=== PATIENT | female | born 1960 | race Two or more races ===

== ENCOUNTER 2017-03-26 14:20 | Emergency (ER) | payer MEDICAID ==
[~2017-03-26] VITALS: Ht 152.4 cm; Wt 53.5 kg
[2017-03-26] MEDS ORDERED: LEVOTHYROXINE50 MCG ORAL (14:50)
[2017-03-26] MEDS ORDERED: ASPIRIN EC81 MG ORAL (14:50)
[2017-03-26] MEDS ORDERED: PRAVACHOL40 MG ORAL (14:50)
[2017-03-26 15:49] LABS: APPEARANCE,URINE CLEAR; BILIRUBIN, URINE NEGATIVE (NEGATIVE); COLOR,URINE PALE YELLOW; GLUCOSE, URINE (UA) NEGATIVE (NEGATIVE); KETONES,URINE NEGATIVE (NEGATIVE); LEUKOCYTE ESTERASE ,URINE 3+ (NEGATIVE); NITRITE,URINE NEGATIVE (NEGATIVE); PH,URINE 6.5 (4.5-8.0); PROTEIN,URINE 1+ (NEGATIVE); UROBILINOGEN,URINE NORMAL MG/DL (0.0-1.0)
[2017-03-26 16:20] VITALS: BP 116/76
[2017-03-26] MEDS ORDERED: NITROFURANTOIN100 M2 ORAL (16:26)
--- NOTE | 2017-03-26 22:40 | Emergency Room Report ---
History of Present Illness General Chief Complaint: Female Urogenital Problems Source: Patient Present Illness HPI The patient is a 57-year-old female presenting for 2 days of pain with urination described as a 5/10 burning sensation. She also admits to increased urinary frequency. She denies other symptoms including abdominal pain, nausea, vomiting, fever, back pain, vaginal discharge, hematuria Allergies: Coded Allergies: ATORVASTATIN (Verified Allergy, Unknown, 03/26/17) Patient History Past Medical History: see triage record Pertinent Family History: none Last Menstrual Period: Post1991. Now: No Reviewed Nursing Documentation: PMH: Agreed, PSxH: Agreed Review of Systems All Other Systems: negative except mentioned in HPI Physical Exam Vital Signs Date Time Temp Pulse Resp B/P (MAP) Pulse Ox O2 Delivery O2 Flow Rate FiO2 03/26/17 14:41 98.2 104 17 119/71 97 Room Air Sp02 EP Interpretation: reviewed, normal General Appearance: no apparent distress, alert, GCS 15, non-toxic Head: normocephalic, atraumatic Eyes: bilateral eye normal inspection, bilateral eye PERRL ENT: hearing grossly normal, normal pharynx, no angioedema, normal voice Respiratory: chest non-tender, lungs clear, normal breath sounds, speaking full sentences Gastrointestinal: normal inspection, no mass, non-distended, tenderness - suprapubic Genitourinary: normal inspection, no CVA tenderness Musculoskeletal: back normal, gait/station normal, normal range of motion, non- tender Neurologic: alert, oriented x3, responsive, motor strength/tone normal, sensory intact, speech normal Medical Decision Making PA Attestation Dr. Mancilla is my supervising physician. Patient management was discussed with my supervising physician Diagnostic Impression: Primary Impression: Urinary tract infection Qualified Codes: N30.01 - Acute cystitis with hematuria ER Course The patient is a 57-year-old female presenting for 2 days of pain with urination described as a 5/10 burning sensation. Differential diagnosis considered but not limited to: UTI, BV, yeast infection, pyelonephritis, PID, PE: Vitals WNL. NAD. Abdomen: Normal appearance. Non distended. No ecchymosis. Normal BS. TTP over suprapubic region only. No McBurney point tenderness. No guarding. No CVA tenderness Urinalysis is consistent with urinary tract infection The patient discharged home with a prescription for Macrobid and is given ER precautions. Laboratory Tests Test 03/26/17 15:18 Urine Color Pale yellow Urine Appearance Clear Urine pH 6.5 (4.5-8.0) Urine Specific Jewell 1.005 (1.005-1.035) Urine Protein 1+ (NEGATIVE) H Urine Glucose (UA) Negative (NEGATIVE) Urine Ketones Negative (NEGATIVE) Urine Occult Blood 4+ (NEGATIVE) H Urine Nitrite Negative (NEGATIVE) Urine Bilirubin Negative (NEGATIVE) Urine Urobilinogen Normal MG/DL (0.0-1.0) Urine Leukocyte Esterase 3+ (NEGATIVE) H Urine RBC 2-4 /HPF (0 - 2) H Urine WBC 5-10 /HPF (0 - 2) H Urine Squamous Epithelial Cells Occasional /LPF Urine Bacteria Occasional /HPF (NONE) Lab Results Impression There's some bacteria with white blood cells Last Vital Signs Date Time Temp Pulse Resp B/P (MAP) Pulse Ox O2 Delivery O2 Flow Rate FiO2 03/26/17 16:20 98.3 72 18 116/76 98 Room Air Status: improved Disposition: HOME, SELF-CARE Condition: Improved Scripts Nitrofurantoin Monohyd/M-Cryst* (MACROBID 100 MG*) 100 Mg Capsule 100 MG ORAL EVERY 12 HOURS, #14 CAP Prov: JOEY LESTER 03/26/17 Patient Instructions: Urinary Tract Infection Additional Instructions: I discussed my findings with the patient. All questions and concerns have been answered. Treatment and medication compliance have been addressed. I advised the patient that they need to follow up with PMD in 3-5 days. Return to ED if symptoms worsen, new symptoms arise, or if needed for any reason. Patient verbalized understanding of discharge instructions. JOEY LESTER Mar 26, 2017 22:40
== END 2017-03-26 16:20 | disposition home or self-care (01) ==
LOC: EMR 16:07
DX: N39.0 Urinary tract infection, site not specified (principal); Z88.8 Allergy status to other drugs, medicaments and biological substances
CPT/HCPCS: 81003; 99283

== ENCOUNTER 2017-04-09 12:44 | Emergency (ER) | payer MEDICAID ==
[~2017-04-09] VITALS: Ht 157.5 cm; Wt 49.9 kg
[~2017-04-09 12:44] MED LIST: ASPIRIN EC81 MG ORAL; LEVOTHYROXINE50 MCG ORAL; NITROFURANTOIN100 M2 ORAL; PRAVACHOL40 MG ORAL
[2017-04-09] MEDS ORDERED: BACTRIM DS TAB1 EAC1 ORAL (12:56)
[2017-04-09] MEDS ORDERED: PHENAZOPYRIDIN100 MG ORAL (12:56)
--- NOTE | 2017-04-09 13:01 | Emergency Room Report ---
History of Present Illness General Chief Complaint: Female Urogenital Problems Source: Patient, Medical Record Present Illness HPI 57-year-old female walks in with continued dysuria after urination associated with polyuria. Patient states she completed Macrobid antibiotic that was given here one to 2 weeks ago for similar symptoms. Patient denies abdominal pain, back pain, fever or chills or nausea or vomiting. Allergies: Coded Allergies: ATORVASTATIN (Verified Allergy, Unknown, 03/26/17) Patient History Past Medical History: none Past Surgical History: none Pertinent Family History: none Social History: Denies: smoking, alcohol use, drug use Now: No Immunizations: UTD Reviewed Nursing Documentation: PMH: Agreed, PSxH: Agreed Nursing Documentation-PMH Past Medical History: No History, Except For Review of Systems All Other Systems: negative except mentioned in HPI Physical Exam Vital Signs Date Time Temp Pulse Resp B/P (MAP) Pulse Ox O2 Delivery O2 Flow Rate FiO2 04/09/17 12:47 98.8 71 18 133/66 98 Room Air Sp02 EP Interpretation: reviewed, normal General Appearance: normal inspection, well appearing, no apparent distress, alert, GCS 15, non-toxic Head: normocephalic, atraumatic Eyes: bilateral eye PERRL, bilateral eye EOMI ENT: normal ENT inspection, hearing grossly normal, normal pharynx, no angioedema, normal voice, TMs + canals normal, uvula midline, moist mucus membranes Neck: normal inspection, full range of motion, supple, thyroid normal, no meningismus, no bony tend Respiratory: normal inspection, lungs clear, normal breath sounds, no rhonchi, no respiratory distress, no retraction, no accessory muscle use, no wheezing, speaking full sentences Cardiovascular #1: regular rate, rhythm, no edema, no JVD, normal capillary refill Gastrointestinal: normal inspection, normal bowel sounds, non tender, soft, no mass, no peritonitis, non-distended, no guarding, no hernia, no pulsatile mass Genitourinary: no CVA tenderness Musculoskeletal: normal inspection, back normal, normal range of motion, no calf tenderness, pelvis stable, Maria Ines's Sign negative Neurologic: normal inspection, alert, oriented x3, responsive, diesel 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, motor strength/tone normal, cerebellar normal, normal gait, speech normal Psychiatric: normal inspection, judgement/insight normal, mood/affect normal, no suicidal/homicidal ideation, no delusions Skin: normal inspection, normal color, no rash Lymphatic: normal inspection, no adenopathy Medical Decision Making Diagnostic Impression: Primary Impression: Urinary tract infection Qualified Codes: N39.0 - Urinary tract infection, site not specified ER Course patient with recurrent or continued UTI Signs stable, afebrile Nonseptic appearing For some reason laboratory did not send urine culture from previous visit We'll try empiric Bactrim I sent urine culture today will check sensitivity and followup Also prescribe Pyridium as needed for dysuria symptoms. ER course: Patient has remained stable during ED stay. Disposition: Patient is to be discharged to home. Prescriptions given are pyridum, bactrim Patient is instructed to follow up with their primary care doctor within 5 days. Strict return precautions discussed with patient such as fever, chills, worsening/severe pain, nausea, vomiting, which may indicate severe illness. Patient verbalizes understanding and agrees with plan. Please note that this Emergency Department Report was dictated using [employer] maker technology software, occasionally this can lead to erroneous entry secondary to interpretation by the dictation equipment Last Vital Signs Date Time Temp Pulse Resp B/P (MAP) Pulse Ox O2 Delivery O2 Flow Rate FiO2 04/09/17 12:47 98.8 71 18 133/66 98 Room Air Status: improved Disposition: HOME, SELF-CARE Condition: Improved Scripts Trimethoprim/Sulfamethoxazole 160/800* (BACTRIM DS TABLET*) 1 Each Tablet 1 TAB ORAL Q12H for 7 Days, #14 TAB 0 Refills Prov: IMCHAEL DAO M.D. 04/09/17 Phenazopyridine Hcl* (PYRIDIUM*) 100 Mg Tablet 100 MG ORAL THREE TIMES A DAY for dysuria for 2 Days, #6 TAB Prov: MICHAEL DAO M.D. 04/09/17 Patient Instructions: Urinary Tract Infection Additional Instructions: - Take all antibiotics as prescribed - Take pyridium ONLY as needed for painful urination MICHAEL DAO M.D. Apr 09, 2017 13:01
[2017-04-09 13:05] VITALS: BP 133/66
[2017-04-09 13:38] LABS: APPEARANCE,URINE SLIGHTLY CLOUDY; BILIRUBIN, URINE NEGATIVE (NEGATIVE); COLOR,URINE PALE YELLOW; GLUCOSE, URINE (UA) NEGATIVE (NEGATIVE); KETONES,URINE NEGATIVE (NEGATIVE); LEUKOCYTE ESTERASE ,URINE 3+ (NEGATIVE); NITRITE,URINE NEGATIVE (NEGATIVE); PH,URINE 5 (4.5-8.0); PROTEIN,URINE NEGATIVE (NEGATIVE); UROBILINOGEN,URINE NORMAL MG/DL (0.0-1.0)
== END 2017-04-09 13:05 | disposition home or self-care (01) ==
LOC: EMR 13:00
DX: N39.0 Urinary tract infection, site not specified (principal)
CPT/HCPCS: 81003; 87086; 87181; 99284